=== PATIENT | male | born 1990 | race Hispanic/Latino ===

== ENCOUNTER 2017-09-21 04:37 | Emergency (ER) | payer BC ==
[2017-09-21 04:50] VITALS: TEMP 97.6; O2SAT 100
--- NOTE | 2017-09-21 05:08 | ED PDOC ---
Syncope/Near Syncope/Dizziness Chief Complaint (Provider): syncope History Per: Patient History/Exam Limitations: no limitations Onset/Duration Of Symptoms: Mins Current Symptoms Are (Timing): Better Activity At Onset Of Symptoms: Sitting Associated Symptoms Preceding Syncopal Episode: Lightheadedness Additional Complaint(s): 27 y/o male brought in by EMS for evaluation of syncopal episode prior to arrival. Patient states he woke up from his sleep with left hip pain, got out of bed to try and stretch it out, and after going in the bathroom and sitting down on the toilet he began to feel lightheaded then fainted, and woke up on the floor with bleeding from head. Denies headache, dizziness, vision changes, nausea/vomiting, neck/back pain, chest pain, shortness of breath, palpitations, drug/alcohol use. <Merced Peguero C - Last Filed: 09/21/17 05:50> <Savi Bush - Last Filed: 09/21/17 07:12> Time Seen by Provider: 09/21/17 04:52 Chief Complaint (Nursing): Syncope Past Medical History Reviewed: Historical Data, Nursing Documentation, Vital Signs Vital Signs: Last Vital Signs Temp 97.6 F 09/21/17 04:48 Pulse 58 L 09/21/17 04:48 Resp 17 09/21/17 04:48 BP 152/82 H 09/21/17 04:48 Pulse Ox 100 09/21/17 04:48 - Medical History PMH: No Chronic Diseases - Surgical History Surgical History: No Surg Hx - Family History Family History: States: No Known Family Hx - Living Arrangements Living Arrangements: Alone - Social History Current smoker - smoking cessation education provided: No Alcohol: Social Drugs: Denies <Merced Peguero - Last Filed: 09/21/17 05:50> Vital Signs: Last Vital Signs Temp 97.6 F 09/21/17 04:48 Pulse 74 09/21/17 06:19 Resp 20 09/21/17 06:19 BP 131/78 09/21/17 06:19 Pulse Ox 100 09/21/17 06:19 <Savi Bush - Last Filed: 09/21/17 07:12> - Allergies Allergies/Adverse Reactions: Allergies Allergy/AdvReac Type Severity Reaction Status Date / Time No Known Allergies Allergy Verified 09/21/17 04:50 Review of Systems ROS Statement: Except As Marked, All Systems Reviewed And Found Negative Neurological: Positive for: Headache <Merced Peguero - Last Filed: 09/21/17 05:50> Physical Exam - Reviewed Nursing Documentation Reviewed: Yes Vital Signs Reviewed: Yes - Physical Exam Appears: Positive for: Well, Non-toxic, No Acute Distress Head Exam: Positive for: NORMAL INSPECTION, NORMOCEPHALIC. Negative for: ATRAUMATIC (1cm laceration frontal scalp) Skin: Positive for: Normal Color Eye Exam: Positive for: Normal appearance, EOMI, PERRL ENT: Positive for: Normal ENT Inspection Cardiovascular/Chest: Positive for: Regular Rate, Rhythm Respiratory: Positive for: Normal Breath Sounds Gastrointestinal/Abdominal: Positive for: Normal Exam Back: Positive for: Normal Inspection Extremity: Positive for: Normal ROM Neurologic/Psych: Positive for: Alert, Oriented. Negative for: Motor/Sensory Deficits <Merced Peguero - Last Filed: 09/21/17 05:50> - ECG ECG: Positive for: Viewed By Me (reviewed by ED attending) ECG Rhythm: Positive for: Sinus Rhythm O2 Sat by Pulse Oximetry: 100 - Other Rad xray left hip X-Ray: Viewed By Me X-Ray Interpretation: no acute findings - Progress ED Course And Treament: labs, xray, CT head, ekg accucheck 63; patient given juice <Merced Peguero - Last Filed: 09/21/17 05:50> - Laboratory Results Result Diagrams: 09/21/17 06:28 09/21/17 06:28 <Savi Bush - Last Filed: 09/21/17 07:12> Procedures - Laceration/Wound Repair Head Wound Length (cm): 1 Wound's Depth, Shape: superficial Wound Explored: clean Irrigated w/ Saline (ccs): 150 Wound Repaired With: Puja (2. antibiotic ointment applied) Wound Complexity: Simple <Merced Peguero - Last Filed: 09/21/17 05:50> Disposition - Disposition Disposition Time: 06:00 Patient Signed Over To: Savi Bush Handoff Comments: pending labs, CT results, re-eval <Merced Peguero C - Last Filed: 09/21/17 05:50> - Patient ED Disposition Is Patient to be Admitted: No Doctor Will See Patient In The: Office Counseled Patient/Family Regarding: Studies Performed, Diagnosis, Need For Followup - Disposition Disposition: Routine/Home <Savi Bush - Last Filed: 09/21/17 07:12> - Clinical Impression Clinical Impression: Syncope, Scalp laceration, Left hip pain - Disposition Referrals: [facility] [Outside] Condition: GOOD Additional Instructions: Take motrin for pain. Return for staple removal in 7 days. Follow up with your PCP in 2-3 days. Instructions: Syncope (Fainting) (DC), Laceration Repair With [place] (DC), Minor Head Injury, Hip Pain
[2017-09-21 06:20] VITALS: BP 131/78; PULSE 74; RESP 20
[2017-09-21 06:37] LABS: BASO % 0.8 % (0.0-2.0); EOS # 0.1 K/uL (0.0-0.7); EOS % 2.1 % (0.0-4.0); HEMOGLOBIN 15.1 g/dL (12.0-18.0); LYMPH # 1.4 K/uL (1.0-4.3); LYMPH % 24.7 % (20.0-40.0); MEAN CELL VOLUME 90.3 fl (80.0-94.0); MEAN CORPUSCULAR HGB CONC 34.3 g/dL (33.0-37.0); MEAN PLATELET VOLUME 8.9 fl (7.2-11.7); MONO # 0.6 K/uL (0.0-0.8); MONO % 10.4 % (0.0-10.0); NEUT # 3.5 K/uL (1.8-7.0); RBC 4.86 Mil/uL (4.40-5.90); RED CELL DISTRIBUTION WIDTH 12.9 % (11.5-14.5); WHITE BLOOD COUNT 5.6 K/uL (4.8-10.8)
[2017-09-21 06:47] LABS: ALB/GLOB RATIO 1.3 (1.0-2.1); ALBUMIN 3.8 g/dL (3.5-5.0); ALT/SGPT 40 U/L (21-72); AST/SGOT 28 U/L (17-59); BLOOD UREA NITROGEN 16 mg/dl (9-20); GFR AFRICAN-AMERICAN > 60; GFR NON-AFRICAN AMERICAN > 60
--- NOTE | 2017-09-21 07:54 | CT ---
PROCEDURE: CT HEAD WITHOUT CONTRAST. HISTORY: syncope, head injury COMPARISON: None available. TECHNIQUE: Axial computed tomography images were obtained through the head/brain without intravenous contrast. Radiation dose: Total exam DLP = 811 mGy-cm. This CT exam was performed using one or more of the following dose reduction techniques: Automated exposure control, adjustment of the mA and/or kV according to patient size, and/or use of iterative reconstruction technique. FINDINGS: HEMORRHAGE: No intracranial hemorrhage. BRAIN: No mass effect or edema. No atrophy or chronic microvascular ischemic changes. VENTRICLES: Unremarkable. No hydrocephalus. CALVARIUM: Unremarkable. PARANASAL SINUSES: Unremarkable as visualized. No significant inflammatory changes. MASTOID AIR CELLS: Unremarkable as visualized. No inflammatory changes. OTHER FINDINGS: None. IMPRESSION: No acute intracranial abnormality. If symptoms persists, consider further evaluation with MRI. These findings were preliminarily reported at 5:57 a.m. on 09/21/[address] Cabrera Parra from [facility].
--- NOTE | 2017-09-21 08:08 | RAD ---
PROCEDURE: Left Hip with Pelvis X-ray Radiographs. HISTORY: pain COMPARISON: None. FINDINGS: BONES: No acute fracture or destructive bony lesion identified. JOINTS: Normal. SOFT TISSUES: Normal. OTHER FINDINGS: None. IMPRESSION: Unremarkable left hip radiographs.
--- NOTE | 2017-09-21 19:19 | CARD ---
APPROVED REPORT EKG Measurement Heart [id number] <Conclusion> Normal sinus rhythm with sinus arrhythmia Normal ECG
== END 2017-09-21 07:30 | disposition home or self-care (01) ==
LOC: H.ER 04:37
DX: R55 Syncope and collapse (principal); S01.01XA Laceration without foreign body of scalp, initial encounter; M25.552 Pain in left hip

== ENCOUNTER 2017-09-30 17:37 | Emergency (ER) | payer BC ==
[2017-09-30 17:44] VITALS: BP 160/94; PULSE 72; RESP 20; TEMP 98.3; O2SAT 98
--- NOTE | 2017-09-30 19:12 | ED PDOC ---
HPI: Wound Care - HPI Time Seen by Provider: 09/30/17 17:50 Chief Complaint (Nursing): Suture/Staple Removal Chief Complaint (Provider): Suture/Staple Removal History Per: Patient Exam Limitations: no limitations Current Symptoms Are (Timing): Gone Now Additional Complaint(s): 27 year old male presents to the ED for patricia removal. Patient reports he fainted and fell on his head 9 days ago and was given patricia. Otherwise: (-) redness, (-) swelling, (-) headache, (-) nausea, (-) vomiting, (-) fever, (-) other complaints. Past Medical History Reviewed: Historical Data, Nursing Documentation, Vital Signs Vital Signs: Last Vital Signs Temp 98.3 F 09/30/17 17:42 Pulse 72 09/30/17 17:42 Resp 20 09/30/17 17:42 BP 160/94 H 09/30/17 17:42 Pulse Ox 98 09/30/17 17:42 - Surgical History Surgical History: No Surg Hx - Family History Family History: States: Unknown Family Hx - Allergies Allergies/Adverse Reactions: Allergies Allergy/AdvReac Type Severity Reaction Status Date / Time No Known Allergies Allergy Verified 09/21/17 04:50 Review of Systems ROS Statement: Except As Marked, All Systems Reviewed And Found Negative Constitutional: Positive for: Other (Welda removal ) Physical Exam - Reviewed Nursing Documentation Reviewed: Yes Vital Signs Reviewed: Yes - Physical Exam Comments: GENERAL APPEARANCE: Patient is awake, alert, oriented x 3, in no acute distress. SKIN: Warm, dry; (-) cyanosis; (-) rash, (+) healing stapled wound to frontal aspect to scalp proximal to hairline. HEAD: (-) scalp swelling or tenderness. EYES: (-) conjunctival pallor, (-) scleral icterus. ENMT: (+) mucous membranes are moist. NECK: (-) tenderness, (+) FROM. EXTREMITIES: (-) deformity. NEURO AND PSYCH: Mental status as above. gill net stringer: Pupils equal, round, and reactive to light; EOMI; (-) facial asymmetry. Strength symmetric. - ECG O2 Sat by Pulse Oximetry: 98 (RA) Pulse Ox Interpretation: Normal Medical Decision Making Medical Decision Making: Time: 1814 Plan: -- Welda were easily removed by PA. Signs of good wound healing noted on exam with no evidence of infection. Advised to follow up with primary care physician in 1-2 days without fail. Return to the emergency room at any time for any new or worsening symptoms. Patient states he fully agrees with and understands discharge instructions. States that he agrees with the plan and disposition. Verbalized and repeated discharge instructions and plan. I have given the patient opportunity to ask any additional questions Scribe Attestation: Documented by Douglas Patterson, acting as a scribe for Colleen Maddox PA-C. Provider Scribe Attestation: All medical record entries made by the Scribe were at my direction and personally dictated by me. I have reviewed the chart and agree that the record accurately reflects my personal performance of the history, physical exam, medical decision making, and the department course for this patient. I have also personally directed, reviewed, and agree with the discharge instructions and disposition. Disposition - Clinical Impression Clinical Impression: Removal of suture - Patient ED Disposition Is Patient to be Admitted: No Counseled Patient/Family Regarding: Need For Followup - Disposition Disposition: Routine/Home Disposition Time: 18:15 Condition: STABLE Instructions: Staple Removal Forms: Contact At Once! [employer] ([place]ik) - PA / [employer] / Resident Statement MD/DO has reviewed & agrees with the documentation as recorded.
== END 2017-09-30 18:28 | disposition home or self-care (01) ==
LOC: H.ER 17:37
DX: Z48.02 Encounter for removal of sutures (principal)